=== PATIENT | female | born 2000 | race Caucasian/White ===

== ENCOUNTER 2021-08-03 07:36 | Inpatient (IN) | payer OTHER ==
[2021-08-01 13:14] VITALS: BMI 25.0
[2021-08-03] MEDS ORDERED: BUPIVACAINE HCL/PF 2.5 MG/ML - 30 ML VIAL IJ ONE (08:23)
[2021-08-03] MEDS ORDERED: MIDAZOLAM HCL 2 MG/2 ML SINGLE DOSE VIAL ONE ×3 (09:26→10:18)
[2021-08-03] MEDS ORDERED: BUPIVACAINE LIPOSOME/PF (EXPAREL) 266 MG/20 ML VIAL ONE (09:26)
[2021-08-03] MEDS ORDERED: BUPIVACAINE HCL/PF 0.5% (5MG/ML) 10 ML VIAL ONE (09:26)
[2021-08-03] MEDS ORDERED: SODIUM CHLORIDE 0.9% P/F 10 ML VIAL IJ ONE (09:26)
[2021-08-03] MEDS ORDERED: BUPIVACAINE HCL 50 ML ONE (09:54)
[2021-08-03] MEDS ORDERED: PROPOFOL 20 ML ONE ×10 (09:56→13:32)
[2021-08-03] MEDS ORDERED: ePHEDrine SULFATE 50 MG/1 ML AMPULE ONE (11:16)
[2021-08-03] MEDS ORDERED: KETAMINE HCL 200 MG/20 ML VIAL ONE (12:42)
[2021-08-03] MEDS ORDERED: HYDROmorphone HCL/PF 1 MG/ML VIAL ONE (13:45)
[2021-08-03] MEDS ORDERED: ONDANSETRON 4 MG/2 ML VIAL IVPUSH PRN (14:31)
[2021-08-03] MEDS ORDERED: ACETAMINOPHEN INJECTION 100 ML IVPB ONE (14:41)
[2021-08-03] MEDS ORDERED: HYDROmorphone *PCA* 10MG/50ML DISP.SYRIN PCA PRN (14:45)
[2021-08-03] MEDS ORDERED: LACTATED RINGERS SOLUTION 1,000 ML IV SCH (14:45)
[2021-08-03] MEDS ORDERED: PCA PUMP NR ONE (14:47)
[2021-08-03] MEDS: ACETAMINOPHEN 1000 MG/100 ML VIAL IVPB SCH ×3 (14:55→21:27)
[2021-08-03] MEDS: KETOROLAC TROMETHAMINE 30 MG/1 ML VIAL IVPB SCH (17:55)
[2021-08-03] MEDS: ONDANSETRON 4 MG/2 ML VIAL IVPUSH PRN (20:50)
[2021-08-03] MEDS: ASPIRIN COATED 81 MG TABLET.EC PO SCH (21:27)
[2021-08-03] MEDS ORDERED: CEFAZOLIN 2 GM in DEXTROSE 5%-WATER - 100 ML IVPB ONE (22:00)
[2021-08-03] MEDS ORDERED: DEXTROSE 5%-WATER - 100 ML IVPB ONE (22:45)
[2021-08-03] MEDS ORDERED: ceFAZolin SODIUM 1 GM VIAL ONE (22:45)
[2021-08-04] MEDS: KETOROLAC TROMETHAMINE 30 MG/1 ML VIAL IVPB SCH ×2 (01:39→09:41)
[2021-08-04] MEDS: ACETAMINOPHEN 1000 MG/100 ML VIAL IVPB SCH (04:13)
[2021-08-04 05:53] VITALS: BP 100/48; PULSE 79; TEMP 98.8
[2021-08-04] MEDS ORDERED: LOCK ITEM NR ONE (06:08)
[2021-08-04] MEDS: ASPIRIN COATED 81 MG TABLET.EC PO SCH (09:41)
[2021-08-04] MEDS: ONDANSETRON 4 MG/2 ML VIAL IVPUSH PRN (09:42)
[2021-08-04] MEDS ORDERED: NORETHINDRONE AC ETH ESTRADIOL PO SCH (10:00)
== END 2021-08-04 12:25 | disposition home or self-care (01) | DRG 309 ==
LOC: FM/S 07:36 → EDSTATUS 09:00 → FM/S 15:51
PROVIDERS: ADMIT Orthopaedic Surgery; ATTEND Orthopaedic Surgery
PROC: 0QS904Z Reposition Left Femoral Shaft with Internal Fixation Device, Open Approach (ICD-10-PCS; principal; 2021-08-03 11:00)
DX: S83.115A Anterior dislocation of proximal end of tibia, left knee, initial encounter (principal); X58.XXXA Exposure to other specified factors, initial encounter; Y93.9 Activity, unspecified; Y92.89 Other specified places as the place of occurrence of the external cause; Y99.9 Unspecified external cause status; M23.52 Chronic instability of knee, left knee; M25.562 Pain in left knee; Q65.89 Other specified congenital deformities of hip
CPT/HCPCS: 73552-TC-LT-FY; 84703; 94760; 97116-GP; 97162-GP; C9803; J0131; U0003; U0005